=== PATIENT | male | born 1975 | race Caucasian/White ===

== ENCOUNTER 2023-02-22 05:59 | Day surgery (SDC) | payer OTHER ==
[~2023-02-22] VITALS: Ht 185.4 cm; Wt 80.0 kg
[2023-02-22] VITALS (237 sets, daily range): BP systolic 92–146; BP diastolic 55–94
--- NOTE | 2023-02-22 06:56 | NUR ---
pt arrives ambulatory with steady gait with mother in attendance. Pt pleasant and in good spirits. Readily answers questions. Discussed POC with pt and mother, all questions answered.
[2023-02-22] MEDS ORDERED: GABAPENTIN100 MG PO (08:44)
[2023-02-22] MEDS ORDERED: XANAX2 MG PO (08:44)
[2023-02-22] MEDS ORDERED: FLEXERIL5 M1 PO (09:05)
[2023-02-22 09:17] LABS: ALBUMIN 4.2 g/dL (3.2-5.0); ALKALINE PHOSPHATASE 54 u/l (38-126); ANION GAP 11 (6-22 (CALC)); BASO% 0.5 % (0-3); BILIRUBIN, TOTAL 0.2 mg/dL (0.2-1.3); BUN 17 mg/dL (9-20); BUN/CREATININE RATIO 24 (12-20 (CALC)); CARBON DIOXIDE 31 mmol/l (22-30); CHLORIDE 103 mmol/l (95-108); CREATININE 0.7 mg/dL (0.7-1.3); GFR FOR AFR.AMER. > 60 ML/MIN (>=60 (CALC)); GFR OTHER RACES > 60 ML/MIN (>=60 (CALC)); HEMATOCRIT 44.8 % (39.0-50.0); HEMOGLOBIN 14.3 g/dl (14.0-18.0); IMMATURE GRANULOCYTES 0.6 % (0.0-5.0); LYMPH% 35.9 % (15-41); MEAN CORPUSCULAR HGB 28.7 pG CALC (26.0-32.0); MEAN CORPUSCULAR HGB CONC 31.9 g/dL CAL (32.0-36.0); MONO% 8.6 % (2-13); NEUT# 4.37 thou/uL (1.82-7.42); NEUT% 52.4 % (42-76); POTASSIUM 4.3 mmol/l (3.5-5.1); RED BLOOD COUNT 4.98 mill/uL (4.70-6.10); RED CELL DISTRI WIDTH 12.4 % (11.5-15.5); SGOT/AST 138 u/l (17-59); SODIUM 140 mmol/l (137-146); TOTAL PROTEIN 8.5 g/dL (6.3-8.2)
--- NOTE | 2023-02-22 12:07 | NUR ---
Induction Note Time out performed at 1207. Patient placed on monitors, Fan hugger, bilateral wrist restraints applied for ET tube protection. Versed 5mg given IV push at 1207 Tourniquet applied to RT arm Lidocaine 100mg given [id number] IV push followed by Rocoronium 10mg at 1208 IV push and held for 90 seconds. Propofol bolus of 130mg given at 1209 IV push. Succinylcholine 80mg given IV push at 1210. Smooth intubation with 7.5 ETT. Positive CO2. Positive Auscultation for air exchange. Patient placed on ventilator for spontaneous ventilation. Placed on Propofol IV drip at 1210. OG inserted. Positive air on auscultation. Positive gastric content. Stomach washed at this time. Naltrexone 50mg given via OG tube with Clonidine 0.2 mg given via OG Tube. OG clamped for 45 minutes. Will monitor patient for symptoms of withdrawal and adjust propfol accordingly.
--- NOTE | 2023-02-22 12:55 | NUR ---
OG open note OG open at this time. Gastric content draining into drainage bag. OG to drain for 45 minutes. Propofol will be titrated down based on patient.
--- NOTE | 2023-02-22 13:45 | NUR ---
OG close note Stomach washed at this time. Naltrexone 50 mg with Clonidine 0.2 mg via OG tube. OG will be clamped for 45 minutes.
[2023-02-22] MEDS ORDERED: NALTREXONE50 MG PO (15:35)
[2023-02-22] MEDS ORDERED: CLONIDINE0.1 MG PO (15:36)
--- NOTE | 2023-02-22 15:40 | NUR ---
OG close note Stomach washed at this time. Naltrexone 50 mg with Clonidine 0.3 mg via OG tube. OG will be clamped for 45 minutes.
--- NOTE | 2023-02-22 17:20 | NUR ---
OG close note Stomach washed at this time. Naltrexone 12.5 mg with Clonidine 0.2 mg via OG tube. OG will be clamped for 45 minutes.
--- NOTE | 2023-02-22 18:35 | NUR ---
closing valium 10mg given vt as ordered. Closing medications given Benadryl 50mg IV push, Decadron 10mg IV push,Magnesium 4 grams IV, Zofran 8mg IV push, Octreotide 100mcg SC.
--- NOTE | 2023-02-22 19:00 | NUR ---
TRANSPORTED PT TO [facility] VIA STRETCHER RESP EVEN AND UNLABORED. VSS. BEDSIDE REPORT TO NITHIN SHAFER LPN
--- NOTE | 2023-02-22 19:54 | NUR ---
BEDSIDE REPORT RECIEVED. PT SLEEPING. RESPIRATIONS EVEN AND UNLABORED ON 2L NC. LUNG SOUNDS CLEAR. HEART RHYTHM NORMAL. BOWEL SOUNDS HYPOACTIVE. #20G LETA PATENT. RIGHT FEMORAL TRIPLE LUMEN PATENT WITH IVF INFUSING PER ORDER. SKIN INTACT. NO S/S OF DISTRESS. ALL SAFETY PRECAUTIONS ARE IN PLACE WITH CALL LIGHT IN REACH. BED ALARM ACTIVE
--- NOTE | 2023-02-23 00:05 | NUR ---
PT RESTING IN SEMI FOWLERS POSITION.PT STILL DISTORIENTED BUT ABLE TO STATE WHEN HE NEEDS TO VOID. 2300 MEDS HELD UNTIL MORE AWAKE. RESIRATIONS EVEN AND UNLABORED ON ROOM AIR. IV SITES NOTED. NO S/S OF DISTRESS. ALL SAFETY PRECAUTIONS ARE IN PLACE WITH CALL LIGHT IN REACH.
[2023-02-23 00:40] VITALS: BP 125/71
--- NOTE | 2023-02-23 04:30 | NUR ---
PT RESTING IN SEMI FOWLERS POSITION. RESPIRATIONS EVEN AND UNLABORED ON ROOM AIR. IV SITES PATENT. NO S/S OF DISTRESS. ALL SAFETY PRECAUTIONS ARE IN PLACE WITH CALL LIGHT IN REACH. BED ALARM ACTIVE.
[2023-02-23 04:32] VITALS: BP 137/73
[2023-02-23 04:41] LABS: HEMATOCRIT 42.9 % (39.0-50.0); HEMOGLOBIN 14.5 g/dl (14.0-18.0); IMMATURE GRANULOCYTES 0.8 % (0.0-5.0); MEAN CELL VOLUME 86.5 fL CALC (80.0-100.0); MEAN CORPUSCULAR HGB 29.2 pG CALC (26.0-32.0); MEAN CORPUSCULAR HGB CONC 33.8 g/dL CAL (32.0-36.0); MONO% 0.7 % (2-13); NEUT# 8.11 thou/uL (1.82-7.42); NEUT% 85.3 % (42-76); RED BLOOD COUNT 4.96 mill/uL (4.70-6.10)
[2023-02-23 04:59] LABS: ALBUMIN 4.2 g/dL (3.2-5.0); ALKALINE PHOSPHATASE 50 u/l (38-126); BUN 12 mg/dL (9-20); BUN/CREATININE RATIO 18 (12-20 (CALC)); CHLORIDE 104 mmol/l (95-108); CREATININE 0.7 mg/dL (0.7-1.3); GFR FOR AFR.AMER. > 60 ML/MIN (>=60 (CALC)); GFR OTHER RACES > 60 ML/MIN (>=60 (CALC)); MAGNESIUM 1.8 mg/dL (1.6-2.3); POTASSIUM 4.2 mmol/l (3.5-5.1); SGOT/AST 147 u/l (17-59); SODIUM 141 mmol/l (137-146); TOTAL PROTEIN 8.2 g/dL (6.3-8.2)
[2023-02-23 05:00] LABS: ANION GAP 22 (6-22 (CALC)); BILIRUBIN, TOTAL 0.7 mg/dL (0.2-1.3); CARBON DIOXIDE 19 mmol/l (22-30)
[2023-02-23 05:08] LABS: LYMPH% 13.2 % (15-41)
--- NOTE | 2023-02-23 07:27 | NUR ---
PERFORMED BEDSIDE REPORT WITH NIGHTSHIFT NURSE. PT NOTED LAYING IN BED, REQUESTING TO USE RESTROOM. ASSISTED PT UP OUT OF BED, GAIT WAS STEADY AND SLOW. PT ABLE TO AMBULATE TO RESTROOM WITH STANDBY ASSIST. NO PROBLEMS URINATING. AMBULATED BACK INTO BED. PT IS A/OX3 WITH SLIGHT GARBLED SPEECH AND APPEARS DROWSY. CALL LIGHT WITHIN REACH AND SAFETY PRECAUTIONS IN PLACE.
[2023-02-23 08:08] VITALS: BP 137/73
--- NOTE | 2023-02-23 08:33 | NUR ---
PT ATE [facility] FROM [facility] AND ADMINISTERED 0800 MEDICATIONS PER EMAR. PT TOLERATED WELL AT THE TIME. PT HAD AN EPISODE OF VOMMITING NOW. CLEAR YELLOW LIQUID ABOUT 400CC. ADMINSITERED MEDICATION FOR NAUSEA PER EMAR. CALL LIGHT WITHIN REACH AND SAFETY PRECAUTIONS IN PLACE.
--- NOTE | 2023-02-23 09:57 | NUR ---
Patient's support person (SP) telephoned with overnight update and to begin discharge planning. All questions answered satisfactorily, no concerns presented. SP agreeable to discharge plan.
--- NOTE | 2023-02-23 11:07 | NUR ---
PT IS AWAKE AND A/OX3. PREPARATORY TECHNICIAN IS ASSISTING PT INTO SHOWER AT THIS TIME. GAIT IS STEADY. CALL LIGHT WITHIN REACH AND SFETY PRECAUTIONS IN PLACE.
--- NOTE | 2023-02-23 11:20 | NUR ---
PT IS DRESSED AND OUT THE SHOWER LAYING DOWN IN BED. ENCOURAGED PT TO REST. CALL LIGHT WITHIN REACH AND SAFETY PRECAUTIONS IN PLACE.
--- NOTE | 2023-02-23 14:36 | NUR ---
Staff walk pt up and down 60's, 80's hallway and back to room. Pt ambulate without any issues.
--- NOTE | 2023-02-23 15:45 | NUR ---
RIGHT FEM CVAD REMOVED BY COMPUTER DESIGNER. SUTURES REMOVED x2, CATHETER TIP INTACT, DIRECT PRESSURE APPLIED AND HEMOSTASIS ACHIEVED. Patient tolerated removal.
--- NOTE | 2023-02-23 15:58 | NUR ---
IV site discontinued, cath intact. No edema , no redness, voices no discomfort. Discharge instructions given. Patient verbalizes understanding of same. Discharged in stable condition via Wheelchair to Home with staff. All belongings sent with pt. PT WAS D/C PER MD ORDER
--- NOTE | 2023-02-23 16:10 | NUR ---
One-on-one teaching with support person completed. SP states undestanding of discharge and after-care instructions and offers no further questions. Medication education given at length. Patient discharged from ANR treatment in stable condition. No nausea or vomiting, tolerated oral intake, and ambulated with a stable gait. IV and Scopolamine patch removed. Patient remained alert and conversive during post-procedure discharge teaching and both parties stated understanding.
== END 2023-02-23 15:59 | disposition home or self-care (01) | DRG 897 ==
LOC: ANR 05:59 → MS2 07:15 → ANR 08:00 → MS2 17:50 → ANR 02-23 15:59
PROVIDERS: ATTEND Anesthesiology
DX: F11.20 Opioid dependence, uncomplicated (principal)
CPT/HCPCS: J2354; J3475